=== PATIENT | female | born 1955 | race Caucasian/White ===

== ENCOUNTER → 2020-01-20 10:05 | Outpatient (CLI) | payer OTHER, SELFPAY ==
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
== END ==
PROVIDERS: PCP Family Medicine; Referring Provider Anesthesiology Pain Medicine; Visit Provider Anesthesiology Pain Medicine
DX: M47.812 Spondylosis without myelopathy or radiculopathy, cervical region (principal)
CPT/HCPCS: 72040

== ENCOUNTER → 2022-10-24 | Outpatient (CLI) | payer OTHER, SELFPAY ==
--- NOTE | 2022-10-24 08:00 | RAD_ITS ---
STUDY: AIR CONTRAST ESOPHAGRAM AND UPPER GI SERIES REASON FOR EXAM: Female, 67 years old. K44.9 - Diaphragmatic hernia without obstruction or gangrene FLUOROSCOPY TIME (if supplied): ( ) minutes/seconds TECHNIQUE: SINGLE CONTRAST AND AIR CONTRAST FLUOROSCOPIC IMAGES. COMPARISON: None. FINDINGS: The cervical esophagus demonstrates normal motility without aspiration. There is no stricture or extrinsic mass effect. No intraluminal polypoid mass is identified. The thoracic esophagus distends well without stricture or mucosal fold thickening. No mucosal ulcerations are identified. There is no extrinsic mass effect. There are no diverticula. No hiatal hernia or gastroesophageal reflux was identified. The stomach distends well without mucosal fold thickening or mucosal ulceration. There is no intraluminal mass. The duodenal bulb is freely distensible without deformity or ulceration. The duodenal sweep is normal in position and caliber. RAD/Upper GI w/BA Swallow IMPRESSION: Normal air-contrast upper GI series. Electronically Signed: Juan M Newman MD at 15:36 EDT ,
== END | disposition home or self-care (01) ==
PROVIDERS: PCP Family Medicine; Referring Provider Surgery; Visit Provider Surgery
DX: K44.9 Diaphragmatic hernia without obstruction or gangrene (principal)
CPT/HCPCS: 74246

== ENCOUNTER 2022-11-27 05:20 | Day surgery (SDC) | payer OTHER, SELFPAY ==
[2022-11-27] VITALS (8 sets, daily range): BP systolic 72–141; BP diastolic 42–68; PULSE 53–66; RESP 16–18; TEMP 36.5–36.6; O2SAT 94–98; BMI 22.6
--- NOTE | 2022-11-27 | GASB_PTH ---
PATIENT: LANCE STORM LOC: EN U#:[id number] AGE/SX: 67/F ROOM: RE11/27/[address]: Dr. Burt Huertas MD : 1955 BED: DIS: 11/27/2022 SPEC #: [id number] RECD: 11/27/22 11:35 STATUS: CHARO CHERELLE #: [id number] ROMULO: 11/27/22 00:[address]: Burt Huertas DEPT: SURGICAL PATHOLOGY RECD BY: Hussein Barahona ENTERED: 11/27/22 11:35 SP TYPE: Gastric Bx OTHR DR: Estela Sullivan PA-C Tissues: A - Duodenum, NOS B - Gastric mucous membrane C - Esophageal mucous membrane D - Esophageal mucous membrane Procedures: Special Stain Group II Surgery Specimen Level IV Alcian Blue/PAS (control) HEADER OPERATION: EGD, biopsy PRE-OP DIAGNOSIS: Epigastric pain, GERD, hiatal hernia, burping TISSUE SUBMITTED: A - Duodenum and antrum biopsy, B - Antrum biopsy for histo and H. pylori, C - Distal esophagus biopsy, D - Mid esophagus biopsy MICROSCOPIC DIAGNOSIS A. Duodenum and antrum, biopsy: Chronic gastritis. Small bowel mucosa with no pathologic change. B. Gastric antrum, biopsy: Chronic gastritis. See comment. C. Distal esophagus, biopsy: Fragments of squamous mucosa with no pathologic change. No evidence of goblet cell metaplasia. See comment. D. Mid esophagus, biopsy: Fragments of squamous mucosa with no pathologic change. AM:lesley 11/28/2022 COMMENT B. The results of immunohistochemistry for Helicobacter pylori will be reported separately ([id number]). C. Alcian blue/PAS stain with matched control supports the above diagnosis. MICROSCOPIC DESCRIPTION Slides are reviewed. GROSS DESCRIPTION A - Received in fixative is one container labeled with the patient's name and designated duodenum and antrum biopsy. The specimen consists of two irregular fragments of light mccall soft tissue that in aggregate measure 0.6 x 0.4 x 0.1 cm. The specimen is totally submitted in one cassette. B - Received in fixative is one container labeled with the patient's name and designated antrum biopsy. The specimen consists of one irregular fragment of light mccall soft tissue that measures 0.5 x 0.2 x 0.1 cm. The specimen is totally submitted in one cassette. C - Received in fixative is one container labeled with the patient's name and designated distal esophagus biopsy. The specimen consists of two irregular fragments of light mccall soft tissue that in aggregate measure 0.8 x 0.4 x 0.1 cm. The specimen is totally submitted in one cassette. D - Received in fixative is one container labeled with the patient's name and designated mid esophagus biopsy. The specimen consists of one irregular fragment of light mccall soft tissue that measures 0.5 x 0.3 x 0.1 cm. The specimen is totally submitted in one cassette. / SJ:rg 11/27/2022 TC:3 CPT: 42126 x4, 19865
--- NOTE | 2022-11-27 05:42 | PCM.HP.BLA ---
History and Physical Date of Admission: 11/27/22 Chief Complaint: HIATAL HERNIA Allergies acetaminophen [From Vicodin] Allergy (Intermediate, Verified 10/16/22 14:05) Otherhydrocodone [From Vicodin] Allergy (Intermediate, Verified 10/16/22 14:05) Otherketorolac Allergy (Intermediate, Verified 10/16/22 14:05) Otherlevofloxacin [From Levaquin] Allergy (Intermediate, Verified 10/16/22 14:05) Nausea Medications fluoxetine 10 mg capsule 10 mg PO DAILY 03/23/22 [History Confirmed 10/16/22] meloxicam 15 mg tablet 15 mg PO DAILY 03/23/22 [History Confirmed 10/16/22] paroxetine HCl 10 mg tablet 10 mg PO DAILY 03/23/22 [History Confirmed 10/16/22] tolterodine 2 mg capsule,extended release 24 hr (Detrol LA) 2 mg PO Q24H 03/23/22 [History Confirmed 10/16/22] PFSH Medical History (Updated 10/16/22 @ 16:[address] Burt Huertas MD) Abdominal pain [place] positive Anxiety and depression Calculus of kidney Chronic pain Epigastric pain Fatigue Flank pain Gastritis GERD (gastroesophageal reflux disease) Globus sensation Hiatal hernia Left renal mass Nausea Osteoarthritis Osteoporosis Vaginal atrophy Surgical History History of delivery History of total hysterectomy Family History Mother Hypertension Heart disease Social History Smoking Status: Never smoker alcohol intake: current HPI HPI HPI: 66-year-old female was referred by Estela Sullivan PA-C for surgical consultation regarding a hiatal hernia and a written compromise surgical consult recommendations will return to her. The patient is concerned about epigastric pain and intermittent burping. This happens frequently after meals. She has been prescribed by Estela Sullivan PA-C combination of Protonix 40 mg and famotidine 20 mg and omeprazole 40 mg and Pepcid 20 mg but the patient states that her symptoms persist. She has never had a contrasted upper GI study. She has had a previous upper endoscopy done May [address] Stuart Montgomery in [facility] which apparently demonstrated hiatal hernia and some reflux changes. She was placed on Protonix 40 mg daily and took that for couple months but states that her symptoms did not improve. Her primary concern is epigastric discomfort and burping. She has had a previous and she has had a previous hysterectomy for benign disease. Her appendix and gallbladder remain in place. ROS General General: No weight change, appetite, fatigue, colon cancer, breast cancer or weakness HEENT HEENT: No difficulty swallowing, eye injury, eye surgery, swollen glands or hoarseness Endo Endocrine: No thyroid disease, diabetes mellitus, thyroid cancer, Hair loss, heat intolerance or cold intolerance Skin Skin: No rash or changing moles Breast Breast: No left breast lump, right breast lump, nipple discharge, breast pain, abnormal mammogram, abnormal US or breast enlargement Musc Musculoskeletal: Yes arthritis; No back problems, rheumatoid arthritis, gout or joint pain Cardio Cardiovascular: No murmur, pacemaker, heart disease, atrial fibrillation, high blood pressure, heart attack, heart stent, palpitations, shortness of breat with exertion or chest pain Psych Psychiatric: Yes depression and anxiety; No hearing voices Resp Respiratory: No shortness of breath, No sleep apnea, No cough, No COPD, No asthma, No emphysema and No wheezing Gastro Gastrointestinal: No abdominal pain, No nausea or vomiting, No diarrhea, No constipation, No blood in stool, No acid reflux, No hemorrhoids, No ulcers, No gallbladder problem and No black,tarry stools Harpal Hematologic: No blood thinners, No blood disorders, No bleeding, No anemia and No blood clots Neuro Neurologic: No system reviewed and no additional complaints, except as documented, No as per HPI, No abnormal gait, No abnormal hearing, No abnormal movements, No abnormal speech, No behavioral changes, No burning sensations, No confusion, No convulsions, No disequilibrium, No dizziness, No localized weakness, No frequent falls, No headache(s), No lack of coordination, No loss of vision, No memory loss, No numbness, No other visual disturbances, No radicular pain, No restless legs, No sensory deficit, No syncope, No tingling, No tremor(s), No weakness and No other Exam Const General: cooperative, comfortable and no acute distress Nutritional Appearance: average body habitus [facility] Head: normal to inspection Eyes General: appearance normal, both eyes and all related structures Neck Neck: normal visual inspection Resp Effort & Inspection: normal respiratory effort Auscultation: clear to auscultation bilaterally Cardio Rate: regular rate Rhythm: regular rhythm GI Inspection: normal to inspection Palpation: soft and no hepatosplenomegaly Musc Cervical Spine: normal cervical lordosis Skin General: no rashes or lesions noted Neuro General: patient alert, patient awake and patient oriented x3 Extrem General: no calf tenderness Psych Appearance: grossly normal Assessment and Plan Assessment and Plan (1) Epigastric pain: Status: Acute (2) GERD (gastroesophageal reflux disease): Status: Acute Qualifiers: Esophagitis presence: esophagitis presence not specified Qualified Code(s): K21.9 - Gastro-esophageal reflux disease without esophagitis (3) Hiatal hernia: Status: Acute (4) Burping: Status: Acute Orders: Orders Upper GI w/BA Swallow Today K44.9 - Diaphragmatic hernia without obstruction or gangrene Plan To help evaluate her epigastric pain and reflux symptomatology and burping I recommend to her contrast upper GI study as well as my performing a repeat esophagogastroduodenoscopy with very careful inspection of anatomy and biopsies as appropriate. I discussed the technique, benefit, risk, alternatives. She has had an opportunity to ask and have questions answered. She is agreeable to scheduling and proceed as noted. She has not been improved by multiple medications. Might consider the additional sucralfate pending findings. I appreciate the opportunity of assisting with her surgical care Copy: MARIPOSA Spann M.D., F.A.C.S October 24, 2022 STUDY: AIR CONTRAST ESOPHAGRAM AND UPPER GI SERIES REASON FOR EXAM: Female, 67 years old. K44.9 - Diaphragmatic hernia without obstruction or gangrene FLUOROSCOPY TIME (if supplied): ( ) minutes/seconds TECHNIQUE: SINGLE CONTRAST AND AIR CONTRAST FLUOROSCOPIC IMAGES. COMPARISON: None. FINDINGS: The cervical esophagus demonstrates normal motility without aspiration. There is no stricture or extrinsic mass effect. No intraluminal polypoid mass is identified. The thoracic esophagus distends well without stricture or mucosal fold thickening. No mucosal ulcerations are identified. There is no extrinsic mass effect. There are no diverticula. No hiatal hernia or gastroesophageal reflux was identified. The stomach distends well without mucosal fold thickening or mucosal ulceration. There is no intraluminal mass. The duodenal bulb is freely distensible without deformity or ulceration. The duodenal sweep is normal in position and caliber. RAD/Upper GI w/BA Swallow IMPRESSION: Normal air-contrast upper GI series. Electronically Signed: Juan M Newman MD at 15:36 EDT , As noted above her barium swallow seems to be unremarkable. We will pursue the esophagogastroduodenoscopy with very careful inspection and biopsy if indicated. She is aware of the technique, benefit, risk, alternatives. She has had an opportunity to ask and have questions answered. We will proceed as noted. Burt Huertas M.D., F.A.C.S.
[2022-11-27] MEDS: Lactated Ringers 1,000 ML 15 ML IV (06:01)
--- NOTE | 2022-11-27 06:30 | IMM_PTH ---
PATIENT: LANCE STORM LOC: EN U#:[id number] AGE/SX: 67/F ROOM: RE11/27/[address]: Dr. Burt Huertas MD : 1955 BED: DIS: 11/27/2022 SPEC #: [id number] RECD: 11/27/22 14:21 STATUS: CHARO REVira #: [id number] ROMULO: 11/27/22 06:[address]: Burt Huertas DEPT: IMMUNOHISTOCHEMISTRY RECD BY: Ching Beck ENTERED: 11/27/22 14:21 SP TYPE: IMMUNO OTHR DR: Estela Sullivan PA-C Tissues: B - Stomach, NOS Procedures: H Pylori (initial) [facility] [address] [address] SPECIMEN INFORMATION: Tissue Source: B - Antrum Clinical Info: Epigastric pain, GERD, hiatal hernia, burping Specimen Number: [id number] CPT code: 00532 METHODOLOGY: Deparaffinized sections of prefer/formalin-fixed tissue or PAP/DQ stained slides are incubated with monoclonal/polyclonal antibodies/oligonucleotide probes. Localization is made via biotin free immunoperoxidase method. Appropriate controls are performed and reacted as expected. Results on target cell population are indicated in the following table: RESULTS: ANTIBODY / CLONE RESULT Block B H Pylori (polyclonal) negative These tests were developed and their performance characteristics determined by [facility]. They may not have been cleared or approved by the U.S. Food and Drug Administration. The FDA has determined that such clearance or approval is not necessary. The above immunohistochemical/dualISH markers are ordered and reviewed by the Pathologist. INTERPRETATION: B. Antrum, biopsy: Negative for Helicobacter pylori organisms. AM:lesley 11/28/2022
--- NOTE | 2022-11-27 06:48 | OP.CCLET_ITS ---
11/27/2022 Estela Sullivan Re : Upper GI endoscopy procedure for Mar Sullivan This procedure was performed on Sunday, November 27, 2022. My impressions and recommendations are as follows: Impressions : - Z-line variable, 38 cm from the incisors. Biopsied. - Normal middle third of esophagus. Biopsied. - Small hiatal hernia. - Erythematous mucosa in the antrum. Biopsied. - Normal examined duodenum. Biopsied. Recommendations : - Discharge patient to home. - Resume previous diet. - Continue present medications. - Await pathology results. - Repeat upper endoscopy. - Telephone my office for pathology results in [address] on a trial of sucralfate 1 g orally twice daily My findings are described in the full procedure note, which is enclosed. If I can be of further assistance, please feel free to contact me at Doctor phone number(s): Work: . Sincerely, Burt Huertas MD 11/27/2022 6:47:46 AM This report has been signed electronically.
--- NOTE | 2022-11-27 06:48 | OP.EGD_ITS ---
Patient Name: Mar Coronado Procedure Date: 11/27/2022 6:15 AM Date of : 1955 Age: 67 Procedure: Upper GI endoscopy Indications: Dysphagia Providers: Burt Huertas MD Referring MD: Burt Huertas MD Medicines: See the Anesthesia note for documentation of the administered medications Complications: No immediate complications. Procedure: Pre-Anesthesia Assessment: - Prior to the procedure, a History and Physical was performed, and patient medications and allergies were reviewed. The patient's tolerance of previous anesthesia was also reviewed. The risks and benefits of the procedure and the sedation options and risks were discussed with the patient. All questions were answered, and informed consent was obtained. Prior Anticoagulants: The patient has taken no anticoagulant or antiplatelet agents. ASA Grade Assessment: II - A patient with mild systemic disease. After reviewing the risks and benefits, the patient was deemed in satisfactory condition to undergo the procedure. After obtaining informed consent, the endoscope was passed under direct vision. Throughout the procedure, the patient's blood pressure, pulse, and oxygen saturations were monitored continuously. The gastroscope was introduced through the mouth, and advanced to the second part of duodenum. The upper GI endoscopy was accomplished without difficulty. The patient tolerated the procedure well. Scope In: 6:34:43 AM Scope Out: 6:41:33 AM Total Procedure Duration Time 0 hours 6 minutes 50 seconds Findings: The Z-line was variable and was found 38 cm from the incisors. Biopsies were taken with a cold forceps for histology. The middle third of the esophagus was normal. Biopsies were taken with a cold forceps for histology. A small hiatal hernia was present. Diffuse mildly erythematous mucosa without bleeding was found in the gastric antrum. Biopsies were taken with a cold forceps for histology. The examined duodenum was normal. Biopsies were taken with a cold forceps for histology. Impression: - Z-line variable, 38 cm from the incisors. Biopsied. - Normal middle third of esophagus. Biopsied. - Small hiatal hernia. - Erythematous mucosa in the antrum. Biopsied. - Normal examined duodenum. Biopsied. Recommendation: - Discharge patient to home. - Resume previous diet. - Continue present medications. - Await pathology results. - Repeat upper endoscopy. - Telephone my office for pathology results in [address] on a trial of sucralfate 1 g orally twice daily Procedure Code(s): --- Professional --- 45128, Esophagogastroduodenoscopy, flexible, transoral; with biopsy, single or multiple Diagnosis Code(s): --- Professional --- K22.89, Other specified disease of esophagus K44.9, Diaphragmatic hernia without obstruction or gangrene K31.89, Other diseases of stomach and duodenum R13.10, Dysphagia, unspecified CPT copyright 2021 [employer]. All rights reserved. The codes documented in this report are preliminary and upon director physical review may be revised to meet current compliance requirements. Burt Huertas MD 11/27/2022 6:47:46 AM This report has been signed electronically. Number of Addenda: 0 Note Initiated On: 11/27/2022 6:15 AM
== END 2022-11-27 07:40 | disposition home or self-care (01) ==
LOC: EN 05:21 → AC 05:24
PROVIDERS: PCP Family Medicine; Referring Provider Family Medicine; Visit Provider Surgery
PROC: 0DJ08ZZ Inspection of Upper Intestinal Tract, Via Natural or Artificial Opening Endoscopic (ICD-10-PCS; CPT 43235; principal; 2022-11-27 06:25)
DX: K29.50 Unspecified chronic gastritis without bleeding (principal); K22.89 Other specified disease of esophagus; K44.9 Diaphragmatic hernia without obstruction or gangrene; K21.9 Gastro-esophageal reflux disease without esophagitis; R13.10 Dysphagia, unspecified; Z79.899 Other long term (current) drug therapy; Z87.891 Personal history of nicotine dependence
CPT/HCPCS: 43239; 88305; 88313; 88342; J7120